=== PATIENT | female | born 1975 | race Caucasian/White ===

== ENCOUNTER 2017-12-24 04:15 | Emergency (ER) | payer OTHER ==
[~2017-12-24] VITALS: Ht 190.5 cm; Wt 75.7 kg
[2017-12-24 04:15] VITALS: BP 127/91
--- NOTE | 2017-12-24 04:15 | NUR ---
42/F BIB SPOUSE FOR WITNESSED SEIZURE. PER PT HAD TONIC CLONIC SEIZURE X 1MIN AT HOME. PT POST-ICTAL UPON ARRIVAL, PT PLACED SAFELY TO BED, PLACED ON TOBACCO CLASSER AND PULSE OX, WITH SEIZURE PRECUATIONS IN PLACED. SAT 99% ON RA, VSS. PT IS VERBAL WITH GARBLED SPEECH, AO TO NAME AND AROUSABLE TO VERBAL STIMULI. PER PT'S MEDS WERE RECENTLY CHANGED BUT UNCERTAIN OF WHICH MEDS PMH: EPILEPSY, ASTHMA Addendum: 12/24/17 at 0511 by [facility] REPORTS PT WAS LOADED INTO CAR AND PT HAD 3 MORE SEIZURES DURING TRANSPORT.
[2017-12-24] MEDS ORDERED: levETIRAcetam 1,000 MG in NACL 0.9% 100 ML IV ONE (04:30)
[2017-12-24] MEDS ORDERED: LORazepam 2 MG/ML VIAL ONE (04:30)
[2017-12-24] MEDS ORDERED: LORazepam 2 MG/ML VIAL IVP ONE ×2 (04:30→04:40)
--- NOTE | 2017-12-24 04:30 | NUR ---
0430TONIC-CLONIC SEIZURE NOTED X 1 MIN. AIRWAY PATENT, ASPIRATION AND SEIZURE PRECUATIONS IN PLACED. SPO2 REMAINED AT 99% ON 1LPMNC. ER MD BAR AT BEDSIDE, VERBAL ORDER TO GIVE ATIVAN 2MG IVP. ATIVAN GIVEN IVP, PT POST-ICTAL BUT AROUSABLE TO VERBAL STIMULI, VSS REMAINED STABLE.
[2017-12-24] MEDS ORDERED: levETIRAcetam 100 MG/ML VIAL IV ONE (04:39)
--- NOTE | 2017-12-24 04:45 | NUR ---
TONIC-CLONIC SEIZURE NOTED X 1 MIN. AIRWAY REMAINED PATENT, ASPIRATION AND SEIZURE PRECUATIONS IN PLACED. SPO2 REMAINED AT 99% ON 1LPMNC. ER MD BAR CALLED TO BEDSIDE, VERBAL ORDER TO GIVE ATIVAN 2MG IVP. ATIVAN GIVEN IVP, PT POST-ICTAL BUT AROUSABLE TO VERBAL STIMULI, VSS REMAINED STABLE.
--- NOTE | 2017-12-24 05:00 | NUR ---
PT IS ASLEEP AT THIS TIME. VSS
[2017-12-24 05:34] LABS: BASOPHILS % (AUTO) 0.8 % (0.0-2.0); EOSINOPHILS # (AUTO) 0.2 K/uL (0-0.4); EOSINOPHILS % (AUTO) 3.9 % (0.0-4.0); HEMATOCRIT 31.1 % (36-48); HEMOGLOBIN 10.3 g/dL (12.0-16.0); LYMPHOCYTES # (AUTO) 1.1 K/uL (2.5-16.5); LYMPHOCYTES % (AUTO) 26.5 % (20.5-51.1); MEAN CORPUSCULAR HEMOGLOBIN 27 pg (27-31); MEAN CORPUSCULAR HGB CONC 33 g/dL (33-37); MEAN CORPUSCULAR VOLUME 81 fL (80-94); MONOCYTES # (AUTO) 0.4 K/uL (0.8-1.0); NEUTROPHILS # (AUTO) 2.6 K/uL (1.8-7.7); NEUTROPHILS % (AUTO) 58.8 % (42.2-75.2); PLATELET COUNT (AUTO) 272 K/uL (140-450); RED BLOOD CELL COUNT(AUTO) 3.83 MIL/uL (4.20-5.40); WHITE BLOOD COUNT (AUTO) 4.3 K/uL (4.8-10.8)
[2017-12-24 05:42] LABS: BARBITURATE, URINE NEG. ng/ml (NEG <=200); BENZODIAZEPINE, URINE NEG. ng/mL (NEG <=200); COCAINE, URINE NEG. ng/mL (NEG <=300); OPIATE, URINE NEG. ng/mL (NEG <=2000); PHENCYCLIDINE SCREEN,URINE NEG. ng/mL (NEG <=25)
[2017-12-24 05:49] LABS: ALBUMIN 3.3 g/dL (3.4-5.0); ANION GAP 12.6 (8-16); ASPARTATE AMINOTRANSFERASE 14 U/L (15-37); CARBON DIOXIDE 29.2 mmol/L (21-32); CHLORIDE 103 mmol/L (98-107); CREATININE 0.9 mg/dL (0.6-1.3); GFR ARICAN-AMERICAN 88 mL/min (>90); GLUCOSE 97 mg/dL (74-106); POTASSIUM 3.8 mmol/L (3.5-5.1); SODIUM SERUM 141 mmol/L (136-145); TOTAL BILIRUBIN 0.1 mg/dL (0.0-1.0); UREA NITROGEN, BLOOD 12 mg/dL (7-18)
[2017-12-24 06:18] LABS: SALICYLATE < 2.8 mg/dL (2.8-20.0)
[2017-12-24 06:19] LABS: ACETAMINOPHEN < 0.5 ug/ml (10-30)
[2017-12-24 06:32] LABS: CANNABINOID, URINE NEG. ng/mL (NEG <=50)
[2017-12-24 06:37] LABS: APPEARANCE,URINE CLEAR (CLEAR); BILIRUBIN,URINE NEGATIVE (NEGATIVE); BLOOD, URINE NEGATIVE (NEGATIVE); COLOR,URINE YELLOW (YELLOW); LEUKOCYTE ESTERASE ,URINE NEGATIVE (NEGATIVE); NITRITE, URINE NEGATIVE (NEGATIVE); UGLUCOSE NEGATIVE (NEGATIVE)
[2017-12-24 06:58] VITALS: BP 136/94
--- NOTE | 2017-12-24 06:58 | NUR ---
Patient discharged with v/s stable. Written and verbal after care instructions given and explained. Patient verbalized understanding. Ambulatory with steady gait. All questions addressed prior to discharge. Advised to follow up with PMD. Addendum: 12/24/17 at 0658 by TERRI IV removed, catheter intact and site benign. Applied folded 4x4 gauze and tape to stop bleeding.
== END 2017-12-24 06:58 | disposition home or self-care (01) ==
LOC: MED 04:15
DX: R56.9 Unspecified convulsions (principal); Z88.6 Allergy status to analgesic agent
CPT/HCPCS: 36415; 70450; 71045; 80053; 80305; 81003; 81025; 82550; 82948; 84484; 85025; 93005; 96365; 96375; 99285; C1758; G0480; G0482; J1953; J2060; Q0092

== ENCOUNTER 2017-12-26 17:48 | Inpatient (IN) | payer OTHER ==
[~2017-12-26] VITALS: Ht 167.6 cm; Wt 94.5 kg
--- NOTE | 2017-12-26 17:57 | NUR ---
52/F BIB WITH C/O SEIZURE LAST NIGHT AND THIS MORNING. HX; SEIZURE DENIES N/V/D; SKIN IS PINK/WARM/DRY; AAOX4 WITH EVEN AND STEADY GAIT; LUNGS CLEAR BL; PATIENT STATES PAIN OF 0/10 AT THIS TIME;PATIENT POSITIONED FOR COMFORT; HOB ELEVATED; BEDRAILS UP X2; BED DOWN. ER MD MADE AWARE OF PT STATUS.
[2017-12-26] MEDS ORDERED: LORazepam 2 MG/ML VIAL ONE (17:58)
--- NOTE | 2017-12-26 17:58 | NUR ---
Patient being evaluated by DR LEAL at bedside.
[2017-12-26 18:00] VITALS: BP 134/95
[2017-12-26] MEDS ORDERED: LORazepam 2 MG/ML VIAL IVP ONE ×2 (18:00→18:15)
--- NOTE | 2017-12-26 18:03 | NUR ---
PT HAS SEIZURE AT THIS TIME, GAVE ATIVAN 2MG IV RIGHT HAND ORDER.
[2017-12-26] MEDS ORDERED: PHENYTOIN 1,000 MG in NACL 0.9% 100 ML IV ONE (18:10)
[2017-12-26] MEDS ORDERED: PHENYTOIN 250 MG/5 ML VIAL IV ONE (18:15)
[2017-12-26] MEDS ORDERED: ONDANSETRON 4 MG/2 ML VIAL IM/IVP PRN (18:40)
[2017-12-26] MEDS ORDERED: DOCUSATE SODIUM 100 MG GELCAP PO PRN (18:40)
[2017-12-26] MEDS ORDERED: KETOROLAC 30 MG/ML VIAL IVP PRN (18:40)
[2017-12-26] MEDS ORDERED: HYDROcodone/APAP 7.5/325 MG 1 TAB PO PRN (18:40)
[2017-12-26] MEDS ORDERED: ACETAMINOPHEN 325 MG TAB PO PRN (18:40)
[2017-12-26] MEDS ORDERED: MORPHINE SULFATE 2 MG/ML SYR IVP PRN (18:40)
[2017-12-26 18:44] LABS: BASOPHILS # (AUTO) 0.1 K/uL (0.00-0.22); BASOPHILS % (AUTO) 0.9 % (0.0-2.0); EOSINOPHILS # (AUTO) 0.3 K/uL (0-0.4); EOSINOPHILS % (AUTO) 4.4 % (0.0-4.0); HEMATOCRIT 31.2 % (36-48); HEMOGLOBIN 9.8 g/dL (12.0-16.0); LYMPHOCYTES # (AUTO) 1.9 K/uL (2.5-16.5); LYMPHOCYTES % (AUTO) 32.7 % (20.5-51.1); MEAN CORPUSCULAR HEMOGLOBIN 26 pg (27-31); MEAN CORPUSCULAR HGB CONC 31 g/dL (33-37); MEAN CORPUSCULAR VOLUME 82 fL (80-94); MONOCYTES # (AUTO) 0.5 K/uL (0.8-1.0); MONOCYTES % (AUTO) 8.7 % (1.7-9.3); NEUTROPHILS # (AUTO) 3.1 K/uL (1.8-7.7); NEUTROPHILS % (AUTO) 53.3 % (42.2-75.2); PLATELET COUNT (AUTO) 295 K/uL (140-450); RED BLOOD CELL COUNT(AUTO) 3.82 MIL/uL (4.20-5.40); RED CELL DISTRIBUTION WIDTH 14.1 % (11.6-13.7); WHITE BLOOD COUNT (AUTO) 5.9 K/uL (4.8-10.8)
[2017-12-26 19:14] LABS: ANION GAP 11.5 (8-16); CARBON DIOXIDE 27.1 mmol/L (21-32); CREATININE 0.8 mg/dL (0.6-1.3); POTASSIUM 3.6 mmol/L (3.5-5.1)
[2017-12-26 19:18] LABS: CHOL/HDL RATIO 2.6 (1-4.5); FREE T4 (FREE THYROXINE) 0.74 ng/dL (0.76-1.46); MAGNESIUM 1.9 mg/dL (1.8-2.4); PHOSPHORUS 4.6 mg/dL (2.5-4.9); THYROID STIMULATING HORMONE 4.19 uIU/mL (0.34-3.74)
--- NOTE | 2017-12-26 19:20 | NUR ---
Patient appears to be SLEEPING comfortably in bed. Vital Signs within normal limits. Respirations even and unlabored.WILL CONTINUE TO MONITOR.
[2017-12-26 19:21] LABS: ALBUMIN 3.1 g/dL (3.4-5.0); TOTAL BILIRUBIN 0.1 mg/dL (0.0-1.0)
--- NOTE | 2017-12-26 19:23 | NUR ---
Patient will be admitted to care of DR YATES. Admited to TELE. Will go to [id number]. Belongings list completed. Report to RADHA CALDERON.
[2017-12-26 19:28] LABS: APPEARANCE,URINE CLEAR (CLEAR); BILIRUBIN,URINE NEGATIVE (NEGATIVE); BLOOD, URINE NEGATIVE (NEGATIVE); COLOR,URINE YELLOW (YELLOW); LEUKOCYTE ESTERASE ,URINE NEGATIVE (NEGATIVE); NITRITE, URINE NEGATIVE (NEGATIVE); UGLUCOSE NEGATIVE (NEGATIVE)
--- NOTE | 2017-12-26 19:30 | NUR ---
RECEIVED PT FROM ER NURSE PT ON BED SLEEPING AFTER ATIVAN GIVEN IN ER NOT SEIZURES ACTIVITY AT THIS TIME ON VENTI MASK NOT SOB NOTED ON TELEMETRY SR, SKIN IS INTACT PT AT BED SIDE MRSA NARES PROTOCOL TAKEN AND SENT TO LAB RAIL GUARD PADDING FOR SEIZURES PRECAUTIONS, 02 SAT 98% TEMP 98.3 INITIAL ASSESSMENT DONE
--- NOTE | 2017-12-26 19:31 | NUR ---
PT ON FOEREHEAD HAS A LIGHTLY BRUISE AND BUMP S/P FALL
[2017-12-26 19:45] VITALS: BP_SYST 110; BP_SYST 117; BP_DIAS 68; BP_DIAS 72
--- NOTE | 2017-12-26 20:00 | NUR ---
PT HELP TO GIVE ALL PT INFORMATION TO ADMIT NOT DISTRESS NOTED AT THIS ;TIME PT ON DEEP SLEEP AFTER ATIVAN GIVEN IN ER ON TELEMETRY SR
[2017-12-26] MEDS ORDERED: levETIRAcetam 1,000 MG in NACL 0.9% 100 ML IV SCH (21:00)
[2017-12-26] MEDS: NACL 0.9% 1,000 ML IV SCH (22:20)
--- NOTE | 2017-12-26 22:20 | NUR ---
AT 2220 STARTED TO BE INFUSED ON LEFT HAND SODIUM CHLORIDE 0.9% ONE LITER AT 90 ML/H
[2017-12-26 23:31] LABS: BARBITURATE, URINE NEG. ng/ml (NEG <=200); BENZODIAZEPINE, URINE NEG. ng/mL (NEG <=200); CANNABINOID, URINE NEG. ng/mL (NEG <=50); COCAINE, URINE NEG. ng/mL (NEG <=300); OPIATE, URINE NEG. ng/mL (NEG <=2000); PHENCYCLIDINE SCREEN,URINE NEG. ng/mL (NEG <=25)
[2017-12-27] VITALS (10 sets, daily range): BP systolic 112–140; BP diastolic 71–97
--- NOTE | 2017-12-27 | NUR ---
PT HAS BEEN REPOSITIONED Q2H NOT DISTRESS NOTED ON TELEMETRY SR IV ON LEFT HAND INFUSING WELL NOT FEVER NOT SOB NOTED PT SLEEPING
[2017-12-27] MEDS: LORazepam 2 MG/ML VIAL IVP PRN ×3 (02:10→17:01)
--- NOTE | 2017-12-27 02:10 | NUR ---
PT HAS SEIZURES AND ATIVAN 1 MG IVP GIVEN ORDER
--- NOTE | 2017-12-27 02:12 | NUR ---
PT HAS A SEIZURE FOR 1 1/2 MINUTES ATIVAN GIVEN ORDER AFTER PT ANSWER QUESTION AND she verbalized to WANT TO WALK TO THE RESTROOM BUT SHE IS SO WEAK UNABLE TO WALK AT THIS TIME PT REPOSITIONED NOT FEVER 02 SAT 99% bp 130 /82 SHE WILL ASSISTED WITH A BED GEORGE
--- NOTE | 2017-12-27 04:00 | NUR ---
REPOSITIONED LINEN CHANGED IV ON LEFT HAND INFUSING WELL ON TELEMETRY SR, NOT SEIZURES ACTIVITY NOTED SEDATED BUT FOLLOW COMMANDS
--- NOTE | 2017-12-27 06:14 | NUR ---
PT SEDATED BUT EASY TO AROUSAL NOT SEIZURES ACTIVITY NOTED ON TELEMETRY SR IV ON LEFT HAND INFUSING WELL REPOSITIONED Q2H
[2017-12-27] MEDS: NACL 0.9% 1,000 ML IV SCH ×2 (06:30→14:07)
--- NOTE | 2017-12-27 06:30 | NUR ---
SODIUM CHLORIDE 0.9% ONE LITER IS INFUSED ON LEFT HAND AT 90 ML/H
--- NOTE | 2017-12-27 06:49 | NUR ---
PT MORE AWAKE FOLLOW COMMANDS, SHE DRINKS WELL A JUICE SHE VERBALIZED TO WAIT FOR BREAKFAST, PT WILL BE ENDORSED TO DAY SHIFT FOR CONTINUITY OF CARE
--- NOTE | 2017-12-27 07:00 | NUR ---
PT IS ENDORSED TO KRISTA GARCIA PT IS MORE AAOX2 BUT STILL SEDATED , FOLLOW COMMANDS ON TELEMETRY SR, IV INFUSING WELL ON LEFT HAND
[2017-12-27 07:01] LABS: BASOPHILS # (AUTO) 0.1 K/uL (0.00-0.22); BASOPHILS % (AUTO) 0.9 % (0.0-2.0); EOSINOPHILS # (AUTO) 0.3 K/uL (0-0.4); EOSINOPHILS % (AUTO) 4.6 % (0.0-4.0); HEMATOCRIT 31.2 % (36-48); LYMPHOCYTES % (AUTO) 33.1 % (20.5-51.1); MEAN CORPUSCULAR HEMOGLOBIN 26 pg (27-31); MEAN CORPUSCULAR HGB CONC 32 g/dL (33-37); MEAN CORPUSCULAR VOLUME 81 fL (80-94); MONOCYTES # (AUTO) 0.6 K/uL (0.8-1.0); NEUTROPHILS # (AUTO) 2.9 K/uL (1.8-7.7); NEUTROPHILS % (AUTO) 51.4 % (42.2-75.2); PLATELET COUNT (AUTO) 285 K/uL (140-450); RED BLOOD CELL COUNT(AUTO) 3.84 MIL/uL (4.20-5.40); RED CELL DISTRIBUTION WIDTH 14.3 % (11.6-13.7); WHITE BLOOD COUNT (AUTO) 5.9 K/uL (4.8-10.8)
--- NOTE | 2017-12-27 07:10 | NUR ---
RECEIVED REPORT FORM THE RN MATERNAL CHILD NURSE AT BEDSIDE FOR CONTINUITY OF CARE. PT IS AWAKE BUT DROWSY. INTRODUCED MYSELF AND UPDATED THE BOARD. SKIN INTACT. PER PT, S/P FALL, HIT HER HEAD. HAS A BUMP ON HER FOREHEAD AND IT HURTS WHEN TOUCHED. SHE ALSO CLAIMS SHE CAN'T HEAR OUT OF HER L EAR. PT HAS IV ON R HAND 24G, AND L HAND 24G NS AT 90 ML INFUSING. PER RN MATERNAL CHILD NURSE, SHE HAD A SEIZURE AROUND 2 AM. NONE SINCE. SHE IS TO HAVE CT OF THE HEAD DONE TODAY. SPOUSE AT BEDSIDE. WILL CONTINUE TO MONITOR PT.
[2017-12-27 07:12] LABS: ANION GAP 9.3 (8-16); CARBON DIOXIDE 28.3 mmol/L (21-32); CREATININE 0.7 mg/dL (0.6-1.3); POTASSIUM 3.6 mmol/L (3.5-5.1)
--- NOTE | 2017-12-27 07:15 | NUR ---
RADIOLOGY HERE TO TAKE PT FOR HEAD CT.
--- NOTE | 2017-12-27 07:30 | NUR ---
PER RADIOLOGY, PT HAD 2 SEIZURES BACK TO BACK. UNABLE TO DO CT SCAN. WILL BRING HER BACK.
--- NOTE | 2017-12-27 07:40 | NUR ---
PT HAD 4 SEIZURES BACK TO BACK. PER DR. EM, TRANSFER TO ICU. WILL TRANSFER.
[2017-12-27] MEDS ORDERED: LORazepam 2 MG/ML VIAL IVP PRN (07:50)
--- NOTE | 2017-12-27 07:50 | NUR ---
ADMINISTERED ATIVAN 2MG IVP. NOT SCANNED IN EMAR D/T URGENCY. NO COMPUTER AVAILABLE AT THE TIME. CHARGE NURSE AND 4 OTHER NURSES, AND MD PRESENT. WILL NOTIFY PHARMACY.
--- NOTE | 2017-12-27 08:00 | NUR ---
PT TRANSFERRED FROM TELEMETRY. PT HAD TWO EPISODES OF SEIZURES UPON ARRIVAL. ATIVAN 1 MG GIVEN ORDERED. PADDED SIDE RAILS AND OTHER SAFETY PRECAUTIONS IN PLACE. PT IS ALERT AND ORIENTED, ABLE TO MAKE NEEDS KNOWN. NORMAL SINUS RHYTHM ON MONITOR. PERIPHERAL IVS G24 TO LEFT HAND AND RIGHT HAND BOTH PATENT AND INTACT. PT C/O SOB. CALLED ER PHYSICIAN TO COME AND EXAMINE PT. WILL CONTINUE TO MONITOR.
--- NOTE | 2017-12-27 08:00 | NUR ---
TRANSFERRED TO ICU. ASSISTED WITH PT SETTLING IN. HAD 2 SEIZURES BACK TO BACK. GAVE REPORT TO ICU NURSE AT BEDSIDE. ER MD HERE TO ASSESS PT. R/T AT BEDSIDE.
[2017-12-27] MEDS ORDERED: LORazepam 2 MG/ML VIAL ONE (08:04)
--- NOTE | 2017-12-27 08:07 | NUR ---
ED PHYSICIAN DR. PINTO AT BEDSIDE. WILL FOLLOW UP ON ORDERS.
--- NOTE | 2017-12-27 08:15 | NUR ---
PT HAD ANOTHER EPISODE OF SEIZURE. DR. PINTO AT BEDSIDE. ATIVAN, REID, ZOFRALEC GIVEN ORDERED.
[2017-12-27] MEDS ORDERED: levETIRAcetam 100 MG/ML VIAL IV ONE (08:24)
[2017-12-27] MEDS ORDERED: ALBUTEROL SULFATE/IPRATROPIU 3 ML SOL IH SCH (08:31)
--- NOTE | 2017-12-27 08:41 | NUR ---
PATIENT HAS BEEN SCREENED AND CATEGORIZED LOW NUTRITION RISK. PATIENT WILL BE SEEN WITHIN 7 DAYS OF ADMISSION. 01/01/[address]
[2017-12-27 08:54] LABS: T4 (THYROXINE) 5.3 ug/dL (4.5-12.0)
[2017-12-27] MEDS ORDERED: levETIRAcetam 500 MG TAB PO SCH (09:00)
[2017-12-27] MEDS ORDERED: PANTOPRAZOLE 40 MG INJ VIAL IVP SCH (09:00)
[2017-12-27] MEDS ORDERED: PHENYTOIN 100 MG CAPER PO SCH (09:00)
--- NOTE | 2017-12-27 09:30 | NUR ---
RESIDENT PHYSICIAN DR. DEAN IN TO SEE PT. WILL FOLLOW UP ON ORDERS. PT IS RESTING COMFORTABLY AT THIS TIME. VSS.
[2017-12-27] MEDS: levETIRAcetam 500 MG TAB PO SCH ×2 (09:50→21:16)
[2017-12-27] MEDS: lamoTRIgine 25 MG TAB PO SCH ×2 (09:50→21:16)
--- NOTE | 2017-12-27 11:15 | NUR ---
CT HEAD COMPLETED. PT TOLERATED WELL. NO SEIZURE ACTIVITY OR DISTRESS NOTED. VITAL SIGNS STABLE.
--- NOTE | 2017-12-27 12:35 | NUR ---
PT HAVING LUNCH. AT BEDSIDE. VITAL SIGNS STABLE. NO DISTRESS OR SEIZURE ACTIVITY NOTED. PADDED SIDE RAILS AND SAFETY PRECAUTIONS IN PLACE. WILL CONTINUE TO MONITOR.
--- NOTE | 2017-12-27 13:56 | NUR ---
PT SLEEPING COMFORTABLY AT THIS TIME. VITAL SIGNS STABLE. NO S/SX OF ACUTE DISTRESS AT THIS TIME. WILL CONTINUE TO MONITOR.
--- NOTE | 2017-12-27 15:29 | NUR ---
CM NOTE INITIAL REVIEW FAXED TO [facility] / FAX# [phone], ATTN: FLORENTIN #[phone] [id number]
--- NOTE | 2017-12-27 16:28 | NUR ---
PT IS ASLEEP, AROUSABLE BY LIGHT SHAKING. FOLLOWS COMMANDS AND ABLE TO MAKE NEEDS KNOWN. AT BEDSIDE. VITAL SIGNS STABLE. SAFETY MEASURES ENSURED. WILL CONTINUE TO MONITOR.
--- NOTE | 2017-12-27 17:00 | NUR ---
PT HAD ONE EPISODE OF SEIZURE ACTIVITY. ATIVAN GIVEN ORDERED.
--- NOTE | 2017-12-27 17:26 | NUR ---
PT RESTING COMFORTABLY AT THIS TIME. VSS. SEIZURE PADS AND ALL SAFETY PRECAUTIONS IN PLACE.
--- NOTE | 2017-12-27 18:15 | NUR ---
PT HAVING DINNER. NO S/SX OF DISTRESS NOTED. ALERT AND ORIENTED, ABLE TO MAKE NEEDS KNOWN AND FOLLOWS COMMANDS. VSS. SAFETY PRECAUTIONS IN PLACE.
--- NOTE | 2017-12-27 18:48 | NUR ---
I was called at 8:07 to evaluate the patient in ICU status post a seizure. The patient had been admitted after having a seizure and was upgraded from Telemetry to ICU. Upon exam, the patient was post-ictal, tachycardic, and responsive to painful stimuli, but otherwise somnolent. The patient's airway was patent and oxygen saturation within normal limits. I did not feel it appropriate to intubate the patient at that time. I ordered Ativan 2mg, Protonix 40mg, and Zofran 4mg. I also ordered a chest x-ray. Chest x-ray was normal with no evidence of aspiration pneumonia. The patient was stable while I was in the ICU for 20 minutes.
--- NOTE | 2017-12-27 19:30 | NUR ---
RECEIVED REPORT FROM MORNING SHIFT NURSE DIVINE. RADHA. PT IS IN ASLEEP, AROUSABLE TO VOICE. LETHARGIC AT THIS TIME. VSS WITH ROOM AIR AT THIS TIME, SR ON GEOPOLITICS TEACHER. BILATERAL LUNG SOUND WHEEZING. BOWEL SOUND PRESENT AT ALL 4QUADS. PERIPHERAL IVS G24 TO LEFT HAND AND RIGHT HAND BOTH PATENT AND INTACT WITH NS 90ML/HR. PADDED SIDE RAILS AND OTHER SAFETY PRECAUTIONS IN PLACE. WILL CONTINUE TO MONITOR.
--- NOTE | 2017-12-27 19:31 | NUR ---
REPORT GIVEN TO KILN WORKER RN FOR CONTINUITY OF CARE. PT IS IN STABLE CONDITION.
--- NOTE | 2017-12-27 21:00 | NUR ---
PT IS AWAKE, AAOX3, VERBALLY RESPONSIVE, COOPERATIVE. AT BEDSIDE AT THIS TIME.
--- NOTE | 2017-12-27 21:20 | NUR ---
ADMINISTERED SCHEDULED MEDICATION FOR SEIZURE ORDERED. PT COMPLAINED ABOUT HEADACHE 01/29. ADMINISTERED TYLENOL, TOLERATED WELL. BILATERAL PADDED SIDE RAILS UP, BED IS LOW POSITION, CALL LIGHT WITHIN THE REACH.
--- NOTE | 2017-12-27 23:00 | NUR ---
PT IS IN ASLEEP, AROUSABLE TO VOICE. NO ACUTE DISTRESS NOTED. SR ON THE MONITOR.
[2017-12-28] VITALS (12 sets, daily range): BP systolic 80–141; BP diastolic 44–96
--- NOTE | 2017-12-28 01:00 | NUR ---
PT IS IN ASLEEP, AROUSABLE TO VOICE, VERBALLY RESPONSIVE. VSS. NO ACUTE RESPIRATORY DISTRESS NOTED. SR ON THE MONITOR. WILL CONTINUE TO MONITOR.
[2017-12-28] MEDS: LORazepam 2 MG/ML VIAL IVP PRN ×8 (02:30→22:07)
--- NOTE | 2017-12-28 02:30 | NUR ---
PT HAD ONE EPISODE OF SEIZURE ACTIVITY, DURATION 30 SEC. PRN 2MG ATIVAN GIVEN ORDERED.
--- NOTE | 2017-12-28 04:30 | NUR ---
PT IS IN ASLEEP, AROUSABLE TO VOICE, VERBALLY RESPONSIVE, ABLE TO ANSWER QUESTIONS. VSS AT THIS TIME. DENIES ANY PAIN. ON ROOM AIR, O2 SAT 97% NOTED AT THIS TIME. SR ON THE MONITOR. NO ACUTE DISTRESS NOTED. WILL CONTINUE TO MONITOR.
[2017-12-28] MEDS: NACL 0.9% 1,000 ML IV SCH ×2 (05:41→16:22)
[2017-12-28 06:01] LABS: ANION GAP 10.2 (8-16); CREATININE 0.8 mg/dL (0.6-1.3); POTASSIUM 4.2 mmol/L (3.5-5.1)
[2017-12-28 06:05] LABS: MAGNESIUM 1.9 mg/dL (1.8-2.4); PHOSPHORUS 3.5 mg/dL (2.5-4.9)
--- NOTE | 2017-12-28 06:30 | NUR ---
PT IS AWAKE, ALERT AND ORIENTED X2, ABLE TO FOLLOW COMMANDS. AT THE BEDSIDE AT THIS TIME. VSS. NO ACUTE DISTRESS NOTED. SR ON THE MONITOR.
[2017-12-28 06:43] LABS: RED BLOOD CELL COUNT(AUTO) 3.73 MIL/uL (4.20-5.40); WHITE BLOOD COUNT (AUTO) 5.6 K/uL (4.8-10.8)
[2017-12-28 06:44] LABS: HEMATOCRIT 30.4 % (36-48); HEMOGLOBIN 9.9 g/dL (12.0-16.0); MEAN CORPUSCULAR HEMOGLOBIN 27 pg (27-31); MEAN CORPUSCULAR HGB CONC 33 g/dL (33-37); MEAN CORPUSCULAR VOLUME 81 fL (80-94); NEUTROPHILS % (AUTO) 50.8 % (42.2-75.2); PLATELET COUNT (AUTO) 264 K/uL (140-450)
[2017-12-28 06:45] LABS: BASOPHILS % (AUTO) 0.6 % (0.0-2.0); EOSINOPHILS # (AUTO) 0.2 K/uL (0-0.4); EOSINOPHILS % (AUTO) 4.3 % (0.0-4.0); LYMPHOCYTES # (AUTO) 2.1 K/uL (2.5-16.5); LYMPHOCYTES % (AUTO) 37.1 % (20.5-51.1); MONOCYTES # (AUTO) 0.4 K/uL (0.8-1.0); MONOCYTES % (AUTO) 7.2 % (1.7-9.3); NEUTROPHILS # (AUTO) 2.8 K/uL (1.8-7.7)
--- NOTE | 2017-12-28 07:10 | NUR ---
RECEIVED REPORT FROM EVELYN GARCIA. PT RESTING COMFORTABLY IN BED WITH AT BEDSIDE. PT HAS SCDS IN PLACE, HOB IS 35% ELEVATED, SEIZURE PRECAUTION RAIL PADDING IN PLACE, BED IN LOWEST POSITION. PT LUNG SOUNDS ARE CLEAR BILATERALLY AND SHE IS ON ROOM AIR. PERRL. RIGHT HAND IV IS RUNNING 90ML/HR NS. PTS LEFT HAD SLIGHT EDEMA, +1, NO OTHER EDEMA PRESENT. S1S2 HEARD AT APEX. PT HAS EQUAL STRENGTH IN UPPER AND LOWER EXTREMITIES. COOPERATIVE AND VERY SLEEPY.
--- NOTE | 2017-12-28 07:20 | NUR ---
PTS LEFT BEDSIDE, PT EATING IN BED, HOB HIGH FOWLERS. SEIZURE PADDING ON RAILS. BED IN LOWEST POSITION.
--- NOTE | 2017-12-28 08:00 | NUR ---
PT HAD TWO SEIZURES 0735: 2 MIN AND 10 SECOND SEIZURE. HEAD PROTECTED AND PT SAFETY ENSURED. 0736: 2MG ATIVAN GIVEN 0740: 40 SECOND SEIZURE. HEAD PROTECTED AND PT SAFETY ENSURED. 0800: SLEEPING IN BED.
[2017-12-28] MEDS: lamoTRIgine 25 MG TAB PO SCH ×3 (08:40→20:00)
[2017-12-28] MEDS: levETIRAcetam 500 MG TAB PO SCH (08:40)
--- NOTE | 2017-12-28 08:55 | NUR ---
FAXED CONCURRENT REVIEW INCLUDING CONSULT BY DR MENDEZ AND PROGRESS NOTE TO [facility] TO [phone] PHONE [phone] X [phone] [facility]OR[facility]IN
[2017-12-28] MEDS ORDERED: levETIRAcetam 500 MG TAB PO SCH (09:00)
--- NOTE | 2017-12-28 09:20 | NUR ---
SPOKE WITH DR. DIANNE BUTT, RESIDENT, ABOUT NEW MEDICATION IV KEPPRA FROM DR. ELLIS. DR. DEAN SPOKE WITH PHARMACY, GIVE 1G IV LOADING DOSE KEPPRA NOW (919), SKIP 1300 DOSE AND RESUME WITH 2100 DOSE OF 1G KEPPRA IV.
[2017-12-28] MEDS ORDERED: levETIRAcetam 1,000 MG in NACL 0.9% 100 ML IV SCH (09:30)
--- NOTE | 2017-12-28 10:05 | NUR ---
SEIZURE AT 1005, LASTED 55 SECONDS. 1MG OF ATIVAN WAS GIVEN. PT HAD JUST FINISHED EATING A SNACK WHEN THIS OCCURRED. AT BESIDE. PTS HEAD AND BODY WAS PROTECTED.
--- NOTE | 2017-12-28 12:37 | NUR ---
PT SLEEPING IN BED. SCDS ON, 4 RAILS RAISED, SEIZURE PRECAUTION PADS ON RAILS, BED IN LOWEST POSITION WITH HOB 35% ELEVATED. IV FLUIDS RUNNING 90ML/HR RIGHT HAND.
--- NOTE | 2017-12-28 13:17 | NUR ---
1305: [address] Patterson at bedside. 1307: 2mg Ativan given. 1310: 20 second seizure occur. Pt calmed down after 20 second and fell asleep
[2017-12-28 15:04] LABS: BASOPHILS # (AUTO) 0.2 K/uL (0.00-0.22); EOSINOPHILS # (AUTO) 0.2 K/uL (0-0.4); HEMATOCRIT 31.2 % (36-48); LYMPHOCYTES # (AUTO) 1.9 K/uL (2.5-16.5); MEAN CORPUSCULAR HEMOGLOBIN 26 pg (27-31); MEAN CORPUSCULAR HGB CONC 32 g/dL (33-37); MEAN CORPUSCULAR VOLUME 81 fL (80-94); MONOCYTES # (AUTO) 0.4 K/uL (0.8-1.0); NEUTROPHILS # (AUTO) 3.6 K/uL (1.8-7.7); PLATELET COUNT (AUTO) 265 K/uL (140-450); RED BLOOD CELL COUNT(AUTO) 3.86 MIL/uL (4.20-5.40); RED CELL DISTRIBUTION WIDTH 14.1 % (11.6-13.7); WHITE BLOOD COUNT (AUTO) 6.3 K/uL (4.8-10.8)
[2017-12-28 15:25] LABS: ANION GAP 10.2 (8-16); CARBON DIOXIDE 28.9 mmol/L (21-32); CREATININE 0.8 mg/dL (0.6-1.3); POTASSIUM 4.1 mmol/L (3.5-5.1)
--- NOTE | 2017-12-28 15:48 | NUR ---
Pt started having a seizures at 1450 and continued through 1530. 2mg of Ativan given IM at 1500 and a second dose of 2mg was given at 1535. Prior to seizures starting, her right hand peripheral IV infiltrated and we were in the process of gaining access. Left external jugular access was acquired by GAGANDEEP Alamo RN. Pts safety was ensured and I stayed at bedside entire time.
--- NOTE | 2017-12-28 16:30 | NUR ---
Pt sleeping, seizure precaution padding on rails, HOB 35%, 4 rails elevated and bed in lowest position.
--- NOTE | 2017-12-28 17:56 | NUR ---
Minal, student support services director, at bedside to begin EGG test. Pt sleeping.
--- NOTE | 2017-12-28 17:58 | NUR ---
Need verification of drivers license from DMV. Dr. Branch has put in orders to ensure that Pt. does not drive / DMV hold on license. 1300 asked of license and he stated "Oh she is to scared to drive and doesn't." Need verification.
--- NOTE | 2017-12-28 18:33 | NUR ---
PER [facility], NO NEED FOR DAILY CLINICAL DOCUMENTS/REVIEW. APPROVED 12/26/[address] NEXT REVIEW 01/02/18
--- NOTE | 2017-12-28 19:05 | NUR ---
RECEIVED REPORT FROM JOVAN GARCIA FOR CONTINUITY OF CARE. PT VS STABLE AT THIS TIME. LAST SEIZURE WAS AT 1508 PER REPORT. PT HAS AT BEDSIDE AND HAVING DINNER. PT AWAKE, ALERT AND ORIENTED. ABLE TO MAKE NEEDS KNOWN. S1+S2 HEARD. PULSES ARE PALPABLE ON ALL EXTREMITIES. SINUS RHYTHM ON MONITOR. ABDOMEN ROUND, SOFT, AND NONDISTENDED. PT ABLE TO USE BEDSIDE COMMODE. PT ABLE TO TURN AND REPOSITION SELF. PT HAS LEFT EJ 18G. PERIPHERAL LINE PATENT AND ASYMPTOMATIC. SCD IN PLACE. HOB AT 30 DEGREES. SEIZURE PADS IN PLACE. CALL LIGHT WITHIN REACH AND SAFETY PRECAUTIONS ARE IN PLACE. WILL CONTINUE TO MONITOR PT.
[2017-12-28] MEDS: LORazepam 2 MG/ML VIAL IM/IVP SCH (19:54)
[2017-12-28] MEDS: levETIRAcetam 1,000 MG in NACL 0.9% 100 ML IV SCH (20:00)
--- NOTE | 2017-12-28 21:55 | NUR ---
PT HAD 3 CONSECUTIVE SEIZURE EPISODES. 2 DOSES OF ATIVAN GIVEN. VS STABLE. PT DOES NOT APPEAR TO BE IN ANY DISTRESS. WILL CONTINUE TO MONITOR PT.
[2017-12-28] MEDS ORDERED: PHENYTOIN 100 MG/2 ML VIAL IVP SCH (22:10)
--- NOTE | 2017-12-28 22:45 | NUR ---
SPOKE WITH DR. FELICIANO REGARDING PHENYTOIN ORDER. PIOTR FROM PHARMACY IS RECOMMENDING THAT MEDICATION BE GIVEN IVPB INSTEAD OF IVP. MADE AWARE.
--- NOTE | 2017-12-28 23:58 | NUR ---
CALLED PHARMACY TO HAVE MEDICATION VERIFIED. PER PHARMACY, PHENYTOIN ROUTE IS STILL IVP, AND RECOMMENDS TO PUSH MEDICATION OVER 2 MINS.
[2017-12-29] VITALS (9 sets, daily range): BP systolic 75–142; BP diastolic 64–88
[2017-12-29] MEDS: LORazepam 2 MG/ML VIAL IM/IVP SCH ×3 (00:15→08:50)
--- NOTE | 2017-12-29 02:35 | NUR ---
PT'S TOLD THE NURSE, " EXCUSE ME, SHE WANTS TO USE THE RESTROOM". SUGGESTED TO PT THAT SHE USE BEDPAN INSTEAD OF BEDSIDE COMMODE D/T SHE MIGHT HAVE A SEIZURE WHILE IN THE BEDPAN. PT INSISTED THAT HER OPENS THE COMMODE AND SHE WILL USE IT. DESPITE EDUCATING PT REGARDING THE RISK, PT INSIST ON USING THE BED GEORGE.
[2017-12-29] MEDS: LORazepam 2 MG/ML VIAL IVP PRN ×2 (02:50→11:35)
--- NOTE | 2017-12-29 02:50 | NUR ---
PT HAD A SEIZURE THAT LASTED FOR ABOUT 1 MINUTE. MEDICATION GIVEN ORDERED.
[2017-12-29] MEDS: NACL 0.9% 1,000 ML IV SCH ×3 (03:20→21:09)
--- NOTE | 2017-12-29 04:26 | NUR ---
PT STILL AT BEDSIDE. PT ASLEEP. VS STABLE AT THIS TIME. NO CHANGE IN CONDITION. NO SIGNS OF DISTRESS NOTED. PT DOES NOT APPEAR TO BE IN PAIN. PT AROUSABLE TO NAME. ALL SAFETY PRECAUTIONS ARE IN PLACE. WILL CONTINUE TO MONITOR PT.
[2017-12-29] MEDS: levETIRAcetam 1,000 MG in NACL 0.9% 100 ML IV SCH ×3 (04:51→20:57)
[2017-12-29] MEDS ORDERED: PHENYTOIN 100 MG/2 ML VIAL IVP SCH (05:00)
--- NOTE | 2017-12-29 06:15 | NUR ---
PT TRANSFERRED TO MST/TELE. REPORT GIVEN TO RN FOR CONTINUITY OF CARE. PT IN STABLE CONDITION AT THIS TIME.
--- NOTE | 2017-12-29 06:30 | NUR ---
ADMITTED PATIENT TO THE TELE UNIT, PATIENT RESTING IN BED, NO S/S OF DISTRESS NOTED, RESPIRATION EVEN AND UNLABORED, ON ROOM AIR. TELE MONITOR PLACED ON PATIENT. IV PATENT AND INTACT. PLAN OF CARE DISCUSSED, PATIENT VERBALIZED UNDERSTANDING. VITAL SIGNS STABLE, READ T 97.6, BP 127/84, HR 74, O2SAT 99%, RR 16. SEIZURE PRECAUTION AND FALL RISK PRECAUTION IN PLACE, CALL LIGHT WITHIN REACH, WILL CONTINUE TO MONITOR.
[2017-12-29 06:44] LABS: BASOPHILS # (AUTO) 0.1 K/uL (0.00-0.22); BASOPHILS % (AUTO) 1.2 % (0.0-2.0); EOSINOPHILS # (AUTO) 0.2 K/uL (0-0.4); EOSINOPHILS % (AUTO) 3.2 % (0.0-4.0); HEMOGLOBIN 9.9 g/dL (12.0-16.0); LYMPHOCYTES # (AUTO) 1.9 K/uL (2.5-16.5); LYMPHOCYTES % (AUTO) 30.3 % (20.5-51.1); MEAN CORPUSCULAR HEMOGLOBIN 26 pg (27-31); MEAN CORPUSCULAR HGB CONC 32 g/dL (33-37); MEAN CORPUSCULAR VOLUME 81 fL (80-94); MONOCYTES # (AUTO) 0.5 K/uL (0.8-1.0); MONOCYTES % (AUTO) 8.2 % (1.7-9.3); NEUTROPHILS # (AUTO) 3.6 K/uL (1.8-7.7); NEUTROPHILS % (AUTO) 57.1 % (42.2-75.2); PLATELET COUNT (AUTO) 267 K/uL (140-450); RED BLOOD CELL COUNT(AUTO) 3.83 MIL/uL (4.20-5.40); RED CELL DISTRIBUTION WIDTH 13.8 % (11.6-13.7); WHITE BLOOD COUNT (AUTO) 6.3 K/uL (4.8-10.8)
[2017-12-29 07:35] LABS: ANION GAP 12.3 (8-16); CARBON DIOXIDE 26.6 mmol/L (21-32); CREATININE 0.7 mg/dL (0.6-1.3); POTASSIUM 3.9 mmol/L (3.5-5.1)
--- NOTE | 2017-12-29 07:38 | NUR ---
ENDORSED PLAN OF CARE TO DAY SHIFT RN, PATIENT IS IN STABLE CONDITION.
--- NOTE | 2017-12-29 07:39 | NUR ---
RECEIVED REPORT FROM THE DIRECTOR OF RESTAURANT NURSE FOR CONTINUITY OF CARE. PT IS ASLEEP SOUNDLY. PER DIRECTOR OF RESTAURANT NURSE, HAD 8 SEIZURES IN THE COURSE OF THE NIGHT. SKIN INTACT. L IJ CATH 3 LUMEN. NS AT 90ML INFUSING. NOT WEARING THE NC. WILL CONTINUE TO MONITOR PT. Addendum: 12/29/17 at 0836 by Lesly Alonzo RN V/S WITHIN NORMAL RANGE. NO SIGNS OF PAIN OR DISTRESS.
[2017-12-29 07:45] LABS: MAGNESIUM 1.9 mg/dL (1.8-2.4); PHOSPHORUS 3.4 mg/dL (2.5-4.9)
--- NOTE | 2017-12-29 08:15 | NUR ---
PER PRINTED CIRCUIT BOARDS SOLDER LEVELER, ARTIFACTS. WENT TO CHECK ON PT. PT IS AWAKE AND ALERT. SITTING UP AND EATING BREAKFAST. SPOUSE AT BEDSIDE. NO SIGNS OF DISTRESS. WILL CONTINUE TO MONITOR PT.
[2017-12-29] MEDS: lamoTRIgine 25 MG TAB PO SCH ×2 (08:50→20:56)
--- NOTE | 2017-12-29 09:00 | NUR ---
SPOUSE CALLED. JUST HAD ANOTHER SEIZURE. ONLY LASTED LESS THAN 1 MIN. PT ON HER SIDELINE. ADMINISTERED SCHEDULED ATIVAN. PT BECAME MORE ALERT. MDS ROUNDING ON PT. GAVE NEW ORDERS. MD WILL PUT IT IN. WILL AWAIT ORDERS. PT MORE ALERT. ADMINISTERED HER SEIZURE MED. TOLERATED WELL. SPOUSE REQUESTED SOME TOWELS TO CLEAN HER UP. PROVIDED TOWELS. WILL CONTINUE TO MONITOR PT.
--- NOTE | 2017-12-29 11:15 | NUR ---
PT DEMANDING TO TAKE A SHOWER. EXPLAINED TO PT WE NEED TO GET AN ORDER FROM THE DR. REQUESTED DR FIELD TO SPEAK TO PT. DR EXPLAINED THE RISKS OF HAVING A SEIZURE IN THE SHOWER, SHE CAN FALL AND HIT HER HEAD. PT STATED THAT SHE DOESN'T CARE. THE UNABLE TO CONVINCE HER. SHE TOOK OFF THE TELE MONITOR BOX AND GOT IN THE SHOWER AGAINST DR FIELD AND MY ADVICE. THE IS THERE WITH HER, WASHING HER. GAVE THEM SOME EXTRA TOWEL AND WASH CLOTHES, NEW GOWN. D/C THE IVF. CAPPED THE ENDS OF THE IJ. ADVISED THEM TO WASH BELOW THE NECK AND NOT TO GET THE IJ WET. WILL CONTINUE TO MONITOR PT.
--- NOTE | 2017-12-29 11:37 | NUR ---
PER SPOUSE, DURING SHOWER, PT COULD FEEL A SEIZURE COMING ON. HE BROUGHT HER BACK TO BED. HAD 2 MORE SEIZURES. ADMINISTERED 2MG OF ATIVAN. PT IS RESTING. WILL CONTINUE TO MONITOR PT.
--- NOTE | 2017-12-29 11:40 | NUR ---
SANDRA HERE. REMOVED THE TELLES CATH AND IV. DC INSTRUCTIONS TO PT AND BROTHER. REPORT GIVEN TO TRANSPORTER. Addendum: 12/29/17 at 1351 by Lesly Alonzo RN WRONG PT. PLEASE DISREGARD.
[2017-12-29] MEDS: LORazepam 1 MG TAB PO SCH ×3 (12:23→23:49)
[2017-12-29] MEDS ORDERED: SERTRALINE 50 MG TAB PO SCH (13:14)
--- NOTE | 2017-12-29 14:03 | NUR ---
PT SLEEPING SOUNDLY. NO SIGNS OF DISTRESS. NO SPOUSE AT BEDSIDE. WILL CONTINUE TO MONITOR PT.
--- NOTE | 2017-12-29 15:38 | NUR ---
PT'S SPOUSE REQUESTED A RECLINER. NOTIFIED HIM WE DON'T HAVE ONE HERE ON OUR UNIT. ASKED ME TO CONTACT THE QUAD STAYER. LEFT QUAD STAYER A MESSAGE. QUAD STAYER CAME AND BROUGHT A RECLINER. NOTIFIED PT THAT WE USUALLY DON'T PROVIDE A RECLINER, ARIANNA ON THIS UNIT BUT MADE AN EXCEPTION WITH DIRECTOR'S PERMISSION.
--- NOTE | 2017-12-29 15:59 | NUR ---
REQUESTED SOME CRACKERS AND ICE WATER. PT IS AWAKE AND ORIENTED. NO MORE SEIZURES. SINCE 1130. SPOUSE IS AT BEDSIDE. WILL CONTINUE TO MONITOR PT.
--- NOTE | 2017-12-29 19:33 | NUR ---
RECEIVED REPORT FROM AM RN IN BED AWAKE AND ALERT. SPOUSE AT BEDSIDE. TELEMETRY MONITORING. CALL LIGHT WITH IN REACH AND CARE PLANS FOR THE NIGHT DISCUSSED WITH THEM. NO SOB. DENIES PAIN AT THIS TIME. LIJ INTACT AND NO BLEEDING. NO S/S OF INFILTRATION.
[2017-12-29] MEDS: MIDAZOLAM 2 MG/2 ML VIAL IVP PRN (21:46)
--- NOTE | 2017-12-29 21:55 | NUR ---
PT. SPOUSE STATED THAT HIS HAD A SEIZURE WITNESSED BY ANOTHER RN BRITTANIE AND CALLED MY ATTENTION. PT. NOTED THAT SHE WAS ON THE SIDE , POSTURE EXTENDED , NO MOUTH FROTHING , AND NO SEIZURE ACTIVITY NOTED IN PRINTER SLOTTER FEEDER. INFORMED THAT WE ARE OBSERVING CLOSELY . MEDICATED WITH VERSED IVP ORDERED. WILL MONITOR FURTHER.
--- NOTE | 2017-12-29 23:00 | NUR ---
PT. AT THIS TIME SLEEPING. TELEMETRY MONITORING. CALL LIGHT WITH IN REACH AND ADVISED SPOUSE TO CALL ME DIRECTLY ON THE PHONE FOR IMMEDIATE ATTENTION RE: SEIZURE. NO FURTHER COMPLAINTS.
--- NOTE | 2017-12-30 01:35 | NUR ---
NO CHANGE IN CONDITION, PATIENT IS SLEEPING, NO S/S OF DISTRESS NOTED, RESPIRATION EVEN AND UNLABORED, CALL LIGHT WITHIN REACH, SAFETY MEASURE ENSURED, WILL CONTINUE TO MONITOR. Addendum: 12/31/17 at 0518 by Liberty Hernandez RN WRONG DATE
[2017-12-30 04:30] VITALS: BP 121/73
--- NOTE | 2017-12-30 04:32 | NUR ---
PT. BEEN SLEEPING WELL. NO FURTHER COMPLAINTS DONE. TELEMETRY MONITORING. NO SOB. CALL LIGHT WITH IN REACH.
[2017-12-30] MEDS: levETIRAcetam 1,000 MG in NACL 0.9% 100 ML IV SCH ×3 (05:42→21:12)
[2017-12-30] MEDS: LORazepam 1 MG TAB PO SCH ×4 (05:42→23:40)
[2017-12-30 07:00] LABS: BASOPHILS # (AUTO) 0.1 K/uL (0.00-0.22); BASOPHILS % (AUTO) 1.9 % (0.0-2.0); EOSINOPHILS # (AUTO) 0.3 K/uL (0-0.4); EOSINOPHILS % (AUTO) 4.3 % (0.0-4.0); HEMATOCRIT 31.6 % (36-48); HEMOGLOBIN 10.3 g/dL (12.0-16.0); LYMPHOCYTES # (AUTO) 2.3 K/uL (2.5-16.5); LYMPHOCYTES % (AUTO) 34.3 % (20.5-51.1); MEAN CORPUSCULAR HEMOGLOBIN 26 pg (27-31); MEAN CORPUSCULAR HGB CONC 32 g/dL (33-37); MEAN CORPUSCULAR VOLUME 81 fL (80-94); MONOCYTES # (AUTO) 0.5 K/uL (0.8-1.0); NEUTROPHILS # (AUTO) 3.5 K/uL (1.8-7.7); NEUTROPHILS % (AUTO) 51.5 % (42.2-75.2); PLATELET COUNT (AUTO) 283 K/uL (140-450); RED BLOOD CELL COUNT(AUTO) 3.92 MIL/uL (4.20-5.40); WHITE BLOOD COUNT (AUTO) 6.7 K/uL (4.8-10.8)
--- NOTE | 2017-12-30 07:03 | NUR ---
PT. STILL SLEEPING AT THIS TIME. NO COMPLAINTS DONE. P.O. MEDICATIONS ABLE TO SWALLOW WELL. NO FURTHER SEIZURE EPISODES DONE EXCEPT X1 THIS SHIFT. MEDICATED WITH VERSED APPROPRIATELY ORDERED. ABLE TO VERBALIZE NEEDS WELL.
--- NOTE | 2017-12-30 07:20 | NUR ---
RECEIVED REPORT FROM THE LOOKBACK COORDINATOR NURSE AT BEDSIDE FOR CONTINUITY OF CARE. PT IS SLEEPING. SPOUSE AT BEDSIDE, SLEEPING IN THE RECLINER. WILL COME BACK TO CHECK ON PT.
[2017-12-30 08:00] VITALS: BP 137/85
--- NOTE | 2017-12-30 08:15 | NUR ---
PT IS AWAKE AND ORIENTED, ATE ALL HER BREAKFAST. V/S WITHIN NORMAL RANGE. WANTED TO KNOW WHEN THE DRS ARE COMING. NOTIFIED HER THAT THEY WILL BE SOON ROUNDING. NO SIGNS OF DISTRESS OR COMPLAINTS. WANTED TO KNOW WHEN SHE WAS GOING TO BE RELEASED. NOTIFIED HER THAT DRS WILL BE IN. WOULD LIKE TO TAKE A SHOWER. WILL CONTINUE TO MONITOR PT.
[2017-12-30 08:30] LABS: MAGNESIUM 1.8 mg/dL (1.8-2.4); PHOSPHORUS 3.7 mg/dL (2.5-4.9)
[2017-12-30 08:51] LABS: ANION GAP 13.1 (8-16); CARBON DIOXIDE 25.8 mmol/L (21-32); CREATININE 0.7 mg/dL (0.6-1.3); POTASSIUM 3.9 mmol/L (3.5-5.1)
[2017-12-30] MEDS: SERTRALINE 50 MG TAB PO SCH (09:51)
[2017-12-30] MEDS: MIDAZOLAM 2 MG/2 ML VIAL IVP PRN (09:51)
[2017-12-30] MEDS: lamoTRIgine 25 MG TAB PO SCH ×2 (09:51→21:11)
--- NOTE | 2017-12-30 09:51 | NUR ---
ADMINISTERED MORNING MEDS AND VERSED. PER PT HAVING ANOTHER SEIZURE. PT WAS OFF AND ON SHAKING. PT TOLERATED WELL. WILL CONTINUE TO MONITOR.
[2017-12-30] MEDS: NACL 0.9% 1,000 ML IV SCH ×2 (09:52→23:39)
[2017-12-30 12:00] VITALS: BP 137/94
--- NOTE | 2017-12-30 12:10 | NUR ---
ADMINISTERED SCHEDULED ATIVAN. PT IS AWAKE AND ALERT. NO SIGNS OF DISTRESS. REQUESTED MORE ICE AND CRACKERS. GIVEN. MET ALL THEIR NEEDS. NO COMPLAINTS AT THIS TIME. WILL CONTINUE TO MONITOR PT.
--- NOTE | 2017-12-30 15:15 | NUR ---
PT SLEEPING SOUNDLY. NO DISTRESS NOTED. NO SEIZURES ALL DAY. WILL CONTINUE TO MONITOR PT.
[2017-12-30 16:00] VITALS: BP 128/81
--- NOTE | 2017-12-30 19:55 | NUR ---
ENDORSED PT TO THE SCIENTIFIC RECRUITER NURSE AT BEDSIDE FOR CONTINUITY OF CARE. PT IN STABLE CONDITION.
--- NOTE | 2017-12-30 19:58 | NUR ---
RECEIVED REPORT FROM DAY SHIFT RN, PATIENT RESTING IN BED, AT THE BEDSIDE, NO S/S OF DISTRESS NOTED, RESPIRATION EVEN AND UNLABORED, IV PATENT AND INTACT, INFUSING NS AT 90ML/HR, SEIZURE PRECAUTION IN PLACE, SAFETY MEASURE ENSURED, WILL CONTINUE TO MONITOR.
[2017-12-30 20:00] VITALS: BP 130/83
--- NOTE | 2017-12-30 20:45 | NUR ---
PATIENT STATED, " THE NEEDLE ON MY NECK, HURTS." FLUSHED WITH NORMAL SALINE, PATENT, BUT PATIENT STATED," IT HURST." CHARGE NURSE STATED NEW IV 22G ON RT FOREARM.
--- NOTE | 2017-12-30 23:43 | NUR ---
PATIENT WAS SLEEPING, BUT EASY TO AROUSE, NO S/S OF DISTRESS NOTED, RESPIRATION EVEN AND UNLABORED, VITAL SIGNS STABLE, DUE MEDICATION GIVEN, CALL LIGHT WITHIN REACH, SAFETY MEASURE ENSURED, WILL CONTINUE TO MONITOR.
[2017-12-31 00:04] VITALS: BP 118/64
--- NOTE | 2017-12-31 01:35 | NUR ---
NO CHANGE IN CONDITION, PATIENT IS SLEEPING, NO S/S OF DISTRESS NOTED, RESPIRATION EVEN AND UNLABORED, CALL LIGHT WITHIN REACH, SAFETY MEASURE ENSURED, WILL CONTINUE TO MONITOR.
[2017-12-31 04:00] VITALS: BP 132/90
--- NOTE | 2017-12-31 04:19 | NUR ---
VITAL SIGNS STABLE, NO CHANGE IN CONDITION, NO S/S OF DISTRESS NOTED, RESPIRATION EVEN AND UNLABORED, CALL LIGHT WITHIN REACH, SAFETY MEASURE ENSURED, WILL CONTINUE TO MONITOR.
[2017-12-31] MEDS: LORazepam 1 MG TAB PO SCH ×2 (05:05→12:50)
[2017-12-31] MEDS: levETIRAcetam 1,000 MG in NACL 0.9% 100 ML IV SCH ×2 (05:05→13:00)
--- NOTE | 2017-12-31 05:10 | NUR ---
PATIENT WAS SLEEPING, EASY TO AROUSE, DUE MEDICATION ADMINISTERED, PATIENT TOLERATED WELL. NO S/S OF DISTRESS NOTED, RESPIRATION EVEN AND UNLABORED, CALL LIGHT WITHIN REACH, SAFETY MEASURE ENSURED, WILL CONTINUE TO MONITOR.
[2017-12-31 07:01] LABS: BASOPHILS # (AUTO) 0.1 K/uL (0.00-0.22); BASOPHILS % (AUTO) 0.8 % (0.0-2.0); EOSINOPHILS # (AUTO) 0.3 K/uL (0-0.4); EOSINOPHILS % (AUTO) 4.2 % (0.0-4.0); HEMATOCRIT 31.6 % (36-48); HEMOGLOBIN 10.5 g/dL (12.0-16.0); LYMPHOCYTES # (AUTO) 2.1 K/uL (2.5-16.5); LYMPHOCYTES % (AUTO) 27.4 % (20.5-51.1); MEAN CORPUSCULAR HEMOGLOBIN 26 pg (27-31); MEAN CORPUSCULAR HGB CONC 33 g/dL (33-37); MEAN CORPUSCULAR VOLUME 79 fL (80-94); MONOCYTES # (AUTO) 0.5 K/uL (0.8-1.0); MONOCYTES % (AUTO) 6.9 % (1.7-9.3); NEUTROPHILS # (AUTO) 4.5 K/uL (1.8-7.7); NEUTROPHILS % (AUTO) 60.7 % (42.2-75.2); PLATELET COUNT (AUTO) 284 K/uL (140-450); RED BLOOD CELL COUNT(AUTO) 3.98 MIL/uL (4.20-5.40); RED CELL DISTRIBUTION WIDTH 13.8 % (11.6-13.7); WHITE BLOOD COUNT (AUTO) 7.5 K/uL (4.8-10.8)
--- NOTE | 2017-12-31 07:15 | NUR ---
ENDORSED PLAN OF CARE TO DAY SHIFT RN, PATIENT IS SLEEPING, AT THE BEDSIDE, NO S/S OF DISTRESS NOTED, RESPIRATION EVEN AND UNLABORED, NO SEIZURE EPISODE DURING MY SHIFT.
[2017-12-31 07:37] LABS: ANION GAP 12.3 (8-16); CARBON DIOXIDE 25.6 mmol/L (21-32); CREATININE 0.8 mg/dL (0.6-1.3); POTASSIUM 3.9 mmol/L (3.5-5.1)
[2017-12-31 07:47] LABS: MAGNESIUM 1.9 mg/dL (1.8-2.4); PHOSPHORUS 3.9 mg/dL (2.5-4.9)
--- NOTE | 2017-12-31 07:50 | NUR ---
ENDORSEMENT RECEIVED FROM SPORTS PHYSICIAN NURSE. PATIENT IS AWAKE, ALERT. RESPIRATION EVEN, UNLABOR. SKIN DRY AND WARM. IV PATENT AND INTACT. FAMILY AT BEDSIDE. DENIED SEIZURE, DIZZINESS, OR SOB AT THIS TIME. PLAN OF CARE WAS DISCUSSED WITH PATIENT. BED AT LOW POSITION, PADDED SIDE RAILS. CALL LIGHT WITHIN REACH.
[2017-12-31 08:00] VITALS: BP 99/73
[2017-12-31] MEDS: lamoTRIgine 25 MG TAB PO SCH (09:42)
[2017-12-31] MEDS: SERTRALINE 50 MG TAB PO SCH (09:42)
[2017-12-31] MEDS: NACL 0.9% 1,000 ML IV SCH (10:55)
--- NOTE | 2017-12-31 10:59 | NUR ---
PATIENT REQUESTED TO TAKE SHOWER. RISKS WERE EXPLAINED TO THE PATIENT EARLIER REGARDING RISK OF HAVING ANOTHER EPISODE OF SEIZURE AND FALL. PATIENT TOOK OFF THE WAREHOUSE SHIPPER, AND IN THE SHOWER ROOM WITH HER .
[2017-12-31 12:00] VITALS: BP 118/77
--- NOTE | 2017-12-31 12:30 | NUR ---
PATIENT IS AWAKE, ALERT. RESPIRATION EVEN, UNLABOR ON ROOM AIR. MEDS WERE GIVEN PER ORDER. DENIED SEIZURE AT THIS TIME. NO DISTRESS NOTED. CALL LIGHT WITHIN REACH
--- NOTE | 2017-12-31 14:02 | NUR ---
CM NOTE NO REVIEW FAXED PER INSURANCE'S REQUEST.
[2017-12-31] MEDS ORDERED: LAM25 PO (14:04)
[2017-12-31] MEDS ORDERED: SERT50TA PO (14:04)
[2017-12-31] MEDS ORDERED: LEVE500T9 PO (14:04)
--- NOTE | 2017-12-31 16:41 | NUR ---
DISCHARGE INSTRUCTION WAS GIVEN AND EXPLAINED TO THE PATIENT. PATIENT VERBALIZED UNDERSTANDING. PRESCRIPTION WAS GIVEN. IV WAS REMOVED, CATHETER INTACT, NO ACTIVE BLEEDING SEEN, PATIENT TOLERATED WELL. ID BAND WAS REMOVED. ALL BELONGINGS WERE TAKEN WITH THE PATIENT. PATIENT WAS ESCORTED OUT BY STAFF. PATIENT IS STABLE AT THIS TIME.
== END 2017-12-31 16:45 | disposition home or self-care (01) | DRG 812 ==
LOC: MED 17:48 → MTU 18:40 → UNDOADMIN 18:40 → MIC 12-27 08:17 → MTU 12-29 06:15
PROVIDERS: ADMIT Family Medicine Sports Medicine; ATTEND Family Medicine Sports Medicine
DX: T43.624A Poisoning by amphetamines, undetermined, initial encounter (principal); J96.00 Acute respiratory failure, unspecified whether with hypoxia or hypercapnia; G92 Toxic encephalopathy; E44.0 Moderate protein-calorie malnutrition; S09.90XA Unspecified injury of head, initial encounter; R45.851 Suicidal ideations; G40.409 Other generalized epilepsy and epileptic syndromes, not intractable, without status epilepticus; F33.1 Major depressive disorder, recurrent, moderate; E03.9 Hypothyroidism, unspecified; F41.1 Generalized anxiety disorder; J45.909 Unspecified asthma, uncomplicated; E78.5 Hyperlipidemia, unspecified; E83.51 Hypocalcemia; D64.9 Anemia, unspecified; X58.XXXA Exposure to other specified factors, initial encounter; F15.10 Other stimulant abuse, uncomplicated; Z91.14 Patient's other noncompliance with medication regimen; Z91.19 Patient's noncompliance with other medical treatment and regimen; Y93.89 Activity, other specified; Y92.89 Other specified places as the place of occurrence of the external cause; Y99.8 Other external cause status; Z88.6 Allergy status to analgesic agent; Z68.33 Body mass index [BMI] 33.0-33.9, adult
CPT/HCPCS: 36415; 70450; 71045; 80048; 80053; 80173; 80185; 80305; 81003; 82140; 82550; 83036; 83735; 84100; 84436; 84439; 84443; 84479; 85025; 85610; 85730; 87081; 95816; 96365; 96368; 96375; 96376; 99285; C1758; C9113; J1165; J1953; J2060; J2250; J2405; J7030; J7620; Q0092

== ENCOUNTER 2018-01-08 00:49 | Emergency (ER) | payer OTHER ==
[~2018-01-08] VITALS: Ht 167.6 cm; Wt 76.7 kg
[~2018-01-08 00:49] MED LIST: LAM25 PO; LEVE500T9 PO; SERT50TA PO
[2018-01-08 00:53] VITALS: BP 150/90
--- NOTE | 2018-01-08 00:59 | NUR ---
PT TAKEN TO BED 10
--- NOTE | 2018-01-08 01:01 | NUR ---
PATIENT PRESENTS TO ED WITH DIZZINESS. PT STATES N/V/ SKIN IS PINK/WARM/DRY; AAOX4 WITH EVEN AND STEADY GAIT; LUNGS CLEAR BL; HR EVEN AND REGULAR; PT DENIES ANY FEVER, CP, SOB, OR COUGH AT THIS TIME; PATIENT STATES PAIN OF 10/10 AT THIS TIME; VSS; PATIENT POSITIONED FOR COMFORT; HOB ELEVATED; BEDRAILS UP X2; BED DOWN. ER MD MADE AWARE OF PT STATUS.
--- NOTE | 2018-01-08 01:34 | NUR ---
ER MD DR ARNOLD AT BEDSIDE FOR EVAL
--- NOTE | 2018-01-08 01:38 | NUR ---
Note undone in EDM - 01/08/18 at 0210 by [email or web address] PATIENT PRESENTS TO ED WITH DIZZINESS. PT STATES SHE HAS N/V X 1 DAY; SKIN IS PINK/WARM/DRY; AAOX4 WITH EVEN AND STEADY GAIT; LUNGS CLEAR BL; HR EVEN AND REGULAR; PT DENIES ANY FEVER, CP, SOB, OR COUGH AT THIS TIME; PATIENT STATES PAIN OF 10/10 HEADACHE AT THIS TIME; PATIENT POSITIONED FOR COMFORT; HOB ELEVATED; BEDRAILS UP X2; BED DOWN. ER MD MADE AWARE OF PT STATUS.
[2018-01-08] MEDS: MECLIZINE 25 MG TAB PO ONE (01:46)
--- NOTE | 2018-01-08 02:00 | NUR ---
PT TAKEN TO CT
[2018-01-08 02:07] LABS: BASOPHILS # (AUTO) 0.1 K/uL (0.00-0.22); BASOPHILS % (AUTO) 1.3 % (0.0-2.0); EOSINOPHILS # (AUTO) 0.2 K/uL (0-0.4); EOSINOPHILS % (AUTO) 2.3 % (0.0-4.0); HEMOGLOBIN 9.6 g/dL (12.0-16.0); LYMPHOCYTES # (AUTO) 1.8 K/uL (2.5-16.5); LYMPHOCYTES % (AUTO) 24.3 % (20.5-51.1); MEAN CORPUSCULAR HEMOGLOBIN 25 pg (27-31); MEAN CORPUSCULAR HGB CONC 32 g/dL (33-37); MEAN CORPUSCULAR VOLUME 79 fL (80-94); MONOCYTES # (AUTO) 0.6 K/uL (0.8-1.0); MONOCYTES % (AUTO) 8.7 % (1.7-9.3); NEUTROPHILS # (AUTO) 4.7 K/uL (1.8-7.7); NEUTROPHILS % (AUTO) 63.4 % (42.2-75.2); PLATELET COUNT (AUTO) 379 K/uL (140-450); RED CELL DISTRIBUTION WIDTH 14.4 % (11.6-13.7); WHITE BLOOD COUNT (AUTO) 7.4 K/uL (4.8-10.8)
[2018-01-08 02:08] LABS: BARBITURATE, URINE NEG. ng/ml (NEG <=200); BENZODIAZEPINE, URINE NEG. ng/mL (NEG <=200); CANNABINOID, URINE NEG. ng/mL (NEG <=50); COCAINE, URINE NEG. ng/mL (NEG <=300); OPIATE, URINE NEG. ng/mL (NEG <=2000); PHENCYCLIDINE SCREEN,URINE NEG. ng/mL (NEG <=25)
[2018-01-08 02:11] LABS: ANION GAP 15.1 (8-16); CARBON DIOXIDE 22.4 mmol/L (21-32); CHLORIDE 102 mmol/L (98-107); CREATININE 0.9 mg/dL (0.6-1.3); GFR ARICAN-AMERICAN 88 mL/min (>90); GLUCOSE 103 mg/dL (74-106); POTASSIUM 3.5 mmol/L (3.5-5.1); SODIUM SERUM 136 mmol/L (136-145); UREA NITROGEN, BLOOD 14 mg/dL (7-18)
[2018-01-08 02:17] LABS: ALBUMIN 3.5 g/dL (3.4-5.0); ASPARTATE AMINOTRANSFERASE 27 U/L (15-37); TOTAL BILIRUBIN 0.2 mg/dL (0.0-1.0)
--- NOTE | 2018-01-08 02:19 | NUR ---
PT RETURN FROM CT
[2018-01-08 02:21] LABS: SALICYLATE < 2.8 mg/dL (2.8-20.0)
[2018-01-08 02:30] LABS: ACETAMINOPHEN < 0.5 ug/ml (10-30)
--- NOTE | 2018-01-08 03:04 | NUR ---
ua sent to lab
--- NOTE | 2018-01-08 03:05 | NUR ---
PT DIFFICULT IV START. OK PER DR ARNOLD TO CANCEL IV MEDS AND IV START.
[2018-01-08 03:15] VITALS: BP 130/83
--- NOTE | 2018-01-08 03:15 | NUR ---
Patient discharged with v/s stable. Written and verbal after care instructions given and explained. Patient verbalized understanding. Ambulatory with steady gait. All questions addressed prior to discharge. Advised to follow up with PMD.
[2018-01-08] MEDS: LORazepam 2 MG/ML VIAL IVP ONE (03:28)
[2018-01-08] MEDS: NACL 0.9% 1,000 ML IV ONE (03:28)
== END 2018-01-08 03:15 | disposition home or self-care (01) ==
LOC: MED 00:49
DX: F15.10 Other stimulant abuse, uncomplicated (principal); J45.909 Unspecified asthma, uncomplicated; Z88.6 Allergy status to analgesic agent
CPT/HCPCS: 36415; 70450; 71045; 80053; 80305; 85025; 93005; 99285; G0480; G0482; J2060; J8597; Q0092